=== PATIENT | female | born 1995 | race Caucasian/White ===

== ENCOUNTER 2020-09-23 07:58 | Outpatient (REF) | payer MEDICAID, SELFPAY | END 2020-09-23 07:59 | disposition home or self-care (01) | LOC: HO.LAB 07:58 | PROVIDERS: PCP Nurse Practitioner Adult Health; Visit Provider Internal Medicine | DX: Z20.828 Contact with and (suspected) exposure to other viral communicable diseases (principal) | CPT/HCPCS: C9803; U0003 ==

== ENCOUNTER 2020-10-03 07:44 | Outpatient (REF) | payer MEDICAID, SELFPAY | END 2020-10-03 07:45 | disposition home or self-care (01) | LOC: HO.LAB 07:44 | PROVIDERS: PCP Nurse Practitioner Adult Health; Visit Provider Internal Medicine | DX: Z20.828 Contact with and (suspected) exposure to other viral communicable diseases (principal) | CPT/HCPCS: 36415; C9803; U0003 ==

== ENCOUNTER 2020-10-17 08:10 | Outpatient (REF) | payer MEDICAID, SELFPAY | END 2020-10-17 08:11 | disposition home or self-care (01) | LOC: HO.LAB 08:10 | PROVIDERS: Visit Provider Internal Medicine | DX: Z20.822 Contact with and (suspected) exposure to COVID-19 (principal) | CPT/HCPCS: 36415; C9803; U0003 ==

== ENCOUNTER 2020-11-08 07:24 | Outpatient (REF) | payer MEDICAID, SELFPAY | END 2020-11-08 07:25 | disposition home or self-care (01) | LOC: HO.LAB 07:24 | PROVIDERS: Visit Provider Internal Medicine | DX: Z20.822 Contact with and (suspected) exposure to COVID-19 (principal) | CPT/HCPCS: 36415; C9803; U0003; U0005 ==

== ENCOUNTER 2020-12-04 07:51 | Outpatient (REF) | payer MEDICAID, SELFPAY | END 2020-12-04 07:52 | disposition home or self-care (01) | LOC: HO.LAB 07:51 | PROVIDERS: Visit Provider Internal Medicine | DX: Z20.822 Contact with and (suspected) exposure to COVID-19 (principal) | CPT/HCPCS: 36415; C9803; U0003; U0005 ==

== ENCOUNTER 2020-12-28 07:35 | Outpatient (REF) | payer MEDICAID, SELFPAY ==
[2020-12-28 09:45] LABS: SARS COV2 PCR INHOUSE NEGATIVE (Negative)
== END 2020-12-28 07:36 | disposition home or self-care (01) ==
LOC: HO.LAB 07:35
PROVIDERS: Visit Provider Internal Medicine
DX: Z20.822 Contact with and (suspected) exposure to COVID-19 (principal)
CPT/HCPCS: C9803; U0003